=== PATIENT | male | born 1965 | race Caucasian/White ===

== ENCOUNTER 2020-10-15 10:29 | Inpatient (IN) | payer OTHER ==
[~2020-10-15] VITALS: Ht 175.3 cm; Wt 72.6 kg
[~2020-10-15 10:29] MED LIST: PREDNISONE5 MG PO
[2020-10-15 11:18] LABS: HEMOGLOBIN 14.8 gm/dl (14.0-17.5); RED BLOOD COUNT 4.87 M/UL (4.20-5.50); WHITE BLOOD COUNT 5.1 K/UL (4.5-11.0)
[2020-10-15 11:43] LABS: BUN/CREATININE RATIO 21 (0-10)
[2020-10-15] MEDS ORDERED: LOPID600 MG PO (14:30)
[2020-10-15] MEDS ORDERED: ZESTRIL40 MG PO (14:30)
[2020-10-15] MEDS ORDERED: PROTONIX 40 MG40 M1 PO (14:31)
[2020-10-15] MEDS ORDERED: PLAQUENIL 200200 MG PO (14:31)
[2020-10-15] MEDS ORDERED: METHOTREXATE T2.5 MG PO (14:32)
[2020-10-15] MEDS ORDERED: PERCOCET 10-321 EACH PO (14:32)
[2020-10-15] MEDS ORDERED: SULFASALAZINE500 MG PO (14:33)
[2020-10-15] MEDS ORDERED: GLIPIZIDE ER10 MG PO (14:34)
[2020-10-15] MEDS ORDERED: GLUCOPHAGE1000 MG PO (14:34)
[2020-10-15] MEDS ORDERED: VENTOLIN HFA 66.7 GM INH (14:56)
[2020-10-15] MEDS ORDERED: ANORO ELLIPTA1 EACH INH (14:56)
[2020-10-15] MEDS ORDERED: ENBREL50 MG/1 M1 SQ (14:57)
[2020-10-16 06:14] LABS: HEMOGLOBIN 14.2 gm/dl (14.0-17.5); RED BLOOD COUNT 4.74 M/UL (4.20-5.50)
[2020-10-16 06:36] LABS: WHITE BLOOD COUNT 3.5 K/UL (4.5-11.0)
[2020-10-17 03:54] LABS: BUN/CREATININE RATIO 41 (0-10)
[2020-10-18 07:38] LABS: BUN/CREATININE RATIO 30 (0-10)
[2020-10-19 04:02] LABS: BUN/CREATININE RATIO 26 (0-10)
[2020-10-19] MEDS ORDERED: AZITHROMYCIN500 MG PO (12:15)
[2020-10-19] MEDS ORDERED: OMNICEF 300 MG300 MG PO (12:15)
[2020-10-19] MEDS ORDERED: PREDNISONE5 MG PO (12:15)
[2020-10-19] MEDS ORDERED: DECADRON6 MG PO (12:15)
[2020-10-19] MEDS ORDERED: HYGROTON TAB 2525 MG PO (12:20)
== END 2020-10-19 18:10 | disposition home or self-care (01) | DRG 871 ==
LOC: ER1 10:29 → CDU 14:26 → MED SURG 4 14:26
PROVIDERS: Physician Assistant; Student in an Organized Health Care Education/Training Program; ADMIT Internal Medicine
PROC: 8E0ZXY6 Isolation (ICD-10-PCS; principal; 2020-10-15)
PROC: XW033E5 Introduction of Remdesivir Anti-infective into Peripheral Vein, Percutaneous Approach, New Technology Group 5 (ICD-10-PCS; 2020-10-15)
PROC: XW13325 Transfusion of Convalescent Plasma (Nonautologous) into Peripheral Vein, Percutaneous Approach, New Technology Group 5 (ICD-10-PCS; 2020-10-16)
DX: A41.89 Other specified sepsis (principal); U07.1 COVID-19; J12.82 Pneumonia due to coronavirus disease 2019; J96.01 Acute respiratory failure with hypoxia; J15.9 Unspecified bacterial pneumonia; N17.9 Acute kidney failure, unspecified; J60 Coalworker's pneumoconiosis; R65.20 Severe sepsis without septic shock; E11.65 Type 2 diabetes mellitus with hyperglycemia; R79.1 Abnormal coagulation profile; M06.9 Rheumatoid arthritis, unspecified; Z79.84 Long term (current) use of oral hypoglycemic drugs; Z79.899 Other long term (current) drug therapy
CPT/HCPCS: 0240U; 36415; 36600; 71045; 80048; 80053; 82550; 82553; 82803; 82962; 83036; 83605; 83735; 83874; 83880; 84100; 84484; 85025; 85379; 85610; 85730; 86900; 86901; 86927; 87040; 93005; 94760; 96365; 96366; 96368; 96372; 96375; 99285; J0456; J0696; J1100; J1650; J7030; J7050; Q9967

== ENCOUNTER → 2020-10-28 | Outpatient (CLI) | payer OTHER ==
[~2020-10-28] MED LIST changes: +ANORO ELLIPTA1 EACH INH; +AZITHROMYCIN500 MG PO; +DECADRON6 MG PO; +ENBREL50 MG/1 M1 SQ; +GLIPIZIDE ER10 MG PO; +GLUCOPHAGE1000 MG PO; +HYGROTON TAB 2525 MG PO; +LOPID600 MG PO; +METHOTREXATE T2.5 MG PO; +OMNICEF 300 MG300 MG PO; +PERCOCET 10-321 EACH PO; +PLAQUENIL 200200 MG PO; +PROTONIX 40 MG40 M1 PO; +SULFASALAZINE500 MG PO; +VENTOLIN HFA 66.7 GM INH; +ZESTRIL40 MG PO
[2020-10-28 08:37] LABS: HEMOGLOBIN 15.4 gm/dl (14.0-17.5); RED BLOOD COUNT 5.41 M/UL (4.20-5.50); WHITE BLOOD COUNT 7.7 K/UL (4.5-11.0)
[2020-10-29 09:14] LABS: THYROXINE (T4) 7.4 ug/dL (4.5-12.0)
== END ==
LOC: LAB 06:39
PROVIDERS: Nurse Practitioner
DX: U07.1 COVID-19 (principal); J12.82 Pneumonia due to coronavirus disease 2019; E11.9 Type 2 diabetes mellitus without complications; E78.5 Hyperlipidemia, unspecified; R91.8 Other nonspecific abnormal finding of lung field
CPT/HCPCS: 36415; 71046; 80053; 80061; 84436; 84443; 84480; 85025; 85652; 86140

== ENCOUNTER → 2020-11-04 | Outpatient (CLI) | payer OTHER | LOC: HEART 5 10:47 | DX: R06.02 Shortness of breath (principal); Z86.16 Personal history of COVID-19 | CPT/HCPCS: 94060; 94729 ==

== ENCOUNTER → 2021-02-28 | Outpatient (CLI) | payer OTHER | LOC: EXRD 08:41 | DX: J60 Coalworker's pneumoconiosis (principal); Z86.16 Personal history of COVID-19; M19.90 Unspecified osteoarthritis, unspecified site; R91.8 Other nonspecific abnormal finding of lung field | CPT/HCPCS: 71046 ==

== ENCOUNTER → 2021-03-30 | Outpatient (CLI) | payer OTHER | LOC: KOH-I 02-23 11:30 → EXRD 12:39 | DX: N28.1 Cyst of kidney, acquired (principal) | CPT/HCPCS: 76775 ==